=== PATIENT | male | born 1990 | race Caucasian/White ===

== ENCOUNTER → 2018-03-05 08:43 | Outpatient (CLI) | payer BC, SELFPAY ==
[2018-03-05 10:55] LABS: Anion Gap 11 (5-15); BUN 20 mg/dL (7-18); Chloride 104 mmol/L (98-107); Cholesterol 111 mg/dL (200); Creatinine, Serum 1.05 mg/dL (0.70-1.30); EST Glomerular Filtration Rate 89 mL/min (>60); Est Glom Filt Rate - Afr Amer 108 mL/min (>60); Glucose 86 mg/dL (74-106); High Density Lipoprotein 62 mg/dL; Potassium 4.1 mmol/L (3.5-5.1); Sodium Level 142 mmol/L (136-145); Thyroid Stim Hormone (TSH) 4.64 uIU/mL (0.358-3.74); Triglycerides 61 mg/dL; Very Low Density Lipoprotein 12 mg/dL (5-40)
== END ==
PROVIDERS: Family Provider Family Medicine; PCP Family Medicine; Visit Provider Family Medicine
DX: Z00.00 Encounter for general adult medical examination without abnormal findings (principal)
CPT/HCPCS: 36415; 80048; 80061; 84443

== ENCOUNTER → 2018-06-18 12:58 | Outpatient (CLI) | payer BC, SELFPAY ==
--- NOTE | 2018-06-18 13:00 | SP.MBSS_ITS ---
PRIMARY / SECONDARY DIAGNOSIS: dysphagia (R13.10) REFERRING PHYSICIAN: Dr. Billy Barton MD CURRENT DIET: regular textures, thin liquids DENTITION: WFL MENTAL STATUS: WNL RESPIRATORY STATUS: O2 via room air PREVIOUS MODIFIED BARIUM SWALLOW STUDY: REASON FOR REFERRAL: Patient is a 27 year old male referred for a modified barium swallow (MBS) study to objectively assess the Patients oropharyngeal swallow function under fluoroscopy secondary to reported persistent reflux issues with intermittent globus sensation that has somewhat improved over the last two weeks through pharmacological management. The Patient denies any coughing or throat clearing during ingestion, though reports difficulty with PO medication ingestion, particularly with larger pills or when attempting to ingest more than one at a time. Reports globus sensation occurs more consistently and more prominently with faster ingestion rates. MEDICAL HISTORY: Gastroesophageal reflux disease STUDY FINDINGS: Patient participated in a Modified Barium Swallow (MBS) study on 06/18/2018. Dr. Varela was the radiologist present for this evaluation. This study was recorded in the lateral view and images were sent to PACs for storage. The following consistencies were presented to this patient for analysis of oropharyngeal swallow function: thin liquids and a regular textured, Destini Doone cookie. Results of the MBS are as follows: PENETRATION / ASPIRATION SCALE (HILL): 1 = does not enter airway 2 = enters airway/above vocal folds/ejected 3 = enters airway/above vocal folds/not ejected 4 = enters airway/contacts vocal folds/ejected 5 = enters airway/contacts vocal folds/not ejected 6 = enters airway/below vocal folds/ejected 7 = enters airway/below vocal folds/not ejected despite effort 8 = enters airway/below vocal folds/no effort PENETRATION / ASPIRATION SCALE (SCORE): Thin liquids via cup (single sip): 1 Thin liquids via cup (single sip): 1 Thin liquids via cup (single sip): 1 Thin liquids via cup (sequential swallows): 1 Regular textures via spoon: 1 Regular textures via spoon: 1 Thin liquids via straw (single sip): 1 Thin liquids via straw (sequential swallows): 1 Thin liquids via straw (12mm tablet): 1 IMPRESSION: DIAGNOSIS: oropharyngeal swallow function within functional limits ORAL PHASE CHARACTERIZED BY: LABIAL SEAL: no labial escape TONGUE CONTROL DURING BOLUS MANIPULATION: posterior escape of less than half of bolus BOLUS PREPARATION / MASTICATION: timely and efficient chewing and mashing BOLUS TRANSPORT / LINGUAL MOTION: brisk tongue motion ORAL RESIDUE: complete oral clearance PHARYNGEAL PHASE CHARACTERIZED BY: INITIATION OF PHARYNGEAL SWALLOW: bolus head at posterior angle of ramus at first hyoid excursion SOFT PALATE ELEVATION: no bolus between soft palate and pharyngeal wall LARYNGEAL ELEVATION: complete superior movement of thyroid cartilage with complete approximation of arytenoids cartilage to epiglottic petiole ANTERIOR HYOID EXCURSION: complete anterior movement EPIGLOTTIC MOVEMENT: complete epiglottic inversion LARYNGEAL VESTIBULE CLOSURE AT HEIGHT OF SWALLOW: complete laryngeal vestibule closure with no air/contrast in laryngeal vestibule PHARYNGEAL STRIPPING WAVE: pharyngeal stripping wave present / complete PHARYNGOESOPHAGEAL SEGMENT OPENING: complete distension and complete duration with no obstruction of flow TONGUE BASE RETRACTION: no contrast between tongue base and posterior pharyngeal wall PHARYNGEAL RESIDUE: complete pharyngeal clearance ESOPHAGEAL PHASE CHARACTERIZED BY: ESOPHAGEAL BOLUS CLEARANCE IN THE UPRIGHT POSITION: complete clearance; esophageal coating DIET TEXTURE RECOMMENDATIONS: Will recommend a regular textured, thin liquid diet. COMPENSATORY STRATEGIES RECOMMENDED: Seated upright at 90 degrees during PO intake, remain upright for 30-60 minutes post meal (GERD precaution), medications with purees. INTERPRETATION OF RESULTS: The Patient presents with mastication and deglutition abilities found to be within normal limits. No clinically significance findings noted this date, with very brief and scant premature posterior spillage to the valleculae during thin liquid ingestion occurring on 1 occasion, consisting of very limited amounts of barium. Noted irregular swallow pattern directly attributed to phagophobia (fear of swallowing) during ingestion of medications, with the Patient reporting fear of choking with medications, which is not unreasonable given the reported symptomology, and is not significant enough to where any measurement obtained during the study was radically altered or safety was significantly compromised. This will likely be appropriately managed by adjusting the presentation of medications (with purees), with the Patient reporting that he already intermittently adjusts PO medication ingestion in this manner. No penetration or aspiration appreciated throughout all consistencies trialed. RECOMMENDATIONS: Would consider further referral for esophageal workup due to the symptoms described above by the Patient if symptoms persist. Patient able to comprehend and express recommended intake precautions detailed above with sufficient detail to suggest high likelihood of compliance. Provided brief overview of signs and symptoms of aspiration, with recommendations for the Patient to further discuss symptoms with PCP. No further skilled speech- language services warranted at this time targeting dysphagia. ADDITIONAL COMMENTS/RECOMMENDATIONS: Results and recommendations were discussed with the Patient immediately following MBS completion, with the Patient verbalizing understanding and agreement with all recommendations and education provided. IMAGE COUNT: 1384 G-CODES: SWALLOWING G8996 Current Status: SWALLOWING G8997 Goal Status: SWALLOWING G8998 Discharge Status: Wilmer Donahue M.A., CCC-BAR TACKER [facility] Speech-Language Pathology Department [email or web address]
--- NOTE | 2018-06-18 13:12 | RAD_ITS ---
STUDY: SWALLOWING STUDY REASON FOR EXAM: Male, 27 years old. Dysphagia. TECHNIQUE: The examination was performed with Speech Pathology in attendance. Under fluoroscopic observation, the patient ingested thin barium, thick barium, barium pudding, and barium coated cracker. FLUOROSCOPY TIME: 1:32 minutes/seconds . 1384 fluoroscopic images were obtained. RADIOLOGIST INVOLVEMENT: Radiologist was present and providing direct supervision. COMPARISON: None. FINDINGS: The following was observed during swallowing of the various mixtures of barium: Thin Barium: There was no evidence of aspiration or laryngeal penetration. Barium Pudding: There was no evidence of aspiration or laryngeal penetration. Barium Coated Cracker: There was no evidence of aspiration or laryngeal penetration. RAD/Swallowing Function w/Video IMPRESSION: Normal tailored barium swallow study. No evidence of increased risk for aspiration. The patient ingested a 12 mm tablet of barium without any difficulty. The swallow study findings were discussed with the patient by the speech pathologist at the conclusion of the examination. Please see speech pathology report for more information and recommendations. Electronically Signed: Miguel Varela MD at 14:49 EST Tel [phone], Service support ,
== END ==
PROVIDERS: Family Provider Family Medicine; PCP Family Medicine; Referring Provider Family Medicine; Visit Provider Family Medicine
DX: R13.10 Dysphagia, unspecified (principal)
CPT/HCPCS: 74230; 92611

== ENCOUNTER → 2018-09-29 15:47 | Outpatient (CLI) | payer BC, SELFPAY ==
[2016-10-07 17:59] VITALS: BMI 26.4
[2018-09-29 17:53] LABS: Thyroid Stim Hormone (TSH) 4.76 uIU/mL (0.358-3.74)
== END ==
PROVIDERS: Family Provider Family Medicine; PCP Family Medicine; Referring Provider Family Medicine; Visit Provider Family Medicine
DX: E03.9 Hypothyroidism, unspecified (principal)
CPT/HCPCS: 36415; 84443

== ENCOUNTER → 2018-12-10 16:17 | Outpatient (CLI) | payer BC, SELFPAY ==
[2016-10-07 17:59] VITALS: BMI 26.4
[2018-12-10 17:29] LABS: Absolute Lymphocyte Count 2.11 X10^3/ul (0.83-4.51); Absolute Neutrophil Count 2.5 X10^3/uL (2.0-7.7); Basophil# 0.02 X10^3/uL; Basophil% 0.4 % (0-1); Eosinophil# 0.28 X10^3/uL; Eosinophils% 4.9 % (0-5); Hematocrit 47.2 % (40-54); Lymphocyte # 2.11 X10^3/ul (4.0); Lymphocyte % 37.2 % (19-41); Mean Corp Hgb Conc 33.9 g/gl (32-36); Mean Corpuscular Hgb 31.3 pg (27.0-32.0); Mean Corpuscular Volume 92.2 fL (80-94); Mean Platelet Vol. 10.1 fl (6.2-12.0); Monocyte# 0.79 X10^3/uL; Monocyte% 13.9 % (0-10); Neutrophil # 2.46 X10^3/uL (2.7-7.7); Neutrophil % 43.4 % (47-70); Platelet Count 263 K/mm3 (150-450); RBC Distribution Width CV 11.9 % (11.6-14.6); RBC Distribution Width SD 39.3 fl (35.1-43.9); Red Blood Count 5.12 M/mm3 (4.6-6.2); White Blood Count 5.7 K/mm3 (4.4-11.0)
[2018-12-10 17:35] LABS: POSITIVE COUNT NO; POSITIVE DIFFERENTIAL NO; POSITIVE MORPHOLOGY NO
[2018-12-10 17:57] LABS: Anion Gap 5 (5-15); BUN 21 mg/dL (7-18); BUN/Creat Ratio 21.3 RATIO (10-20); Calcium,Total 8.8 mg/dL (8.5-10.1); Chloride 104 mmol/L (98-107); Creatinine, Serum 0.98 mg/dL (0.70-1.30); EST Glomerular Filtration Rate 96 mL/min (>60); Est Glom Filt Rate - Afr Amer 116 mL/min (>60); Glucose 81 mg/dL (74-106); Potassium 3.9 mmol/L (3.5-5.1); Sodium Level 140 mmol/L (136-145); Thyroid Stim Hormone (TSH) 2.63 uIU/mL (0.358-3.74)
== END ==
PROVIDERS: Family Provider Family Medicine; PCP Family Medicine; Referring Provider Family Medicine; Visit Provider Family Medicine
DX: E03.9 Hypothyroidism, unspecified (principal); R53.83 Other fatigue
CPT/HCPCS: 36415; 80048; 84403; 84436; 84443; 84481; 85025

== ENCOUNTER → 2019-05-17 08:26 | Outpatient (CLI) | payer BC, SELFPAY ==
[2019-05-17 10:50] LABS: Anion Gap 7 (5-15); BUN 19 mg/dL (7-18); BUN/Creat Ratio 17.4 RATIO (10-20); Calcium,Total 9.1 mg/dL (8.5-10.1); Chloride 102 mmol/L (98-107); Cholesterol 107 mg/dL (200); Creatinine, Serum 1.09 mg/dL (0.70-1.30); EST Glomerular Filtration Rate 85 mL/min (>60); Est Glom Filt Rate - Afr Amer 103 mL/min (>60); Free T3 3.6 pg/mL (2.18-3.98); Glucose 85 mg/dL (74-106); High Density Lipoprotein 62 mg/dL; Sodium Level 138 mmol/L (136-145); T4 Total, Thyroxin 9.5 ug/dL (4.5-12.1); Thyroid Stim Hormone (TSH) 4.97 uIU/mL (0.358-3.74); Triglycerides 50 mg/dL; Very Low Density Lipoprotein 10 mg/dL (5-40)
== END ==
PROVIDERS: Family Provider Family Medicine; PCP Family Medicine; Referring Provider Family Medicine; Visit Provider Family Medicine
DX: Z00.00 Encounter for general adult medical examination without abnormal findings (principal); E03.9 Hypothyroidism, unspecified
CPT/HCPCS: 36415; 80048; 80061; 84403; 84436; 84443; 84481

== ENCOUNTER → 2023-04-03 | Outpatient (CLI) | payer OTHER, SELFPAY ==
[2023-04-03 18:39] LABS: Anion Gap 5 (5-15); BUN 23 mg/dL (7-18); BUN/Creat Ratio 19.8 RATIO (10-20); Calcium,Total 8.9 mg/dL (8.5-10.1); Chloride 104 mmol/L (98-107); Cholesterol 110 mg/dL (200); Creatinine, Serum 1.16 mg/dL (0.70-1.30); EST Glomerular Filtration Rate 77 mL/min (>60); Est Glom Filt Rate - Afr Amer 93 mL/min (>60); Free T3 3.7 pg/mL (2.18-3.98); Glucose 86 mg/dL (74-106); High Density Lipoprotein 58 mg/dL; Potassium 3.6 mmol/L (3.5-5.1); Sodium Level 137 mmol/L (136-145); T4 Free Direct 1.03 ng/dL (0.76-1.46); Triglycerides 76 mg/dL; Very Low Density Lipoprotein 15 mg/dL (5-40)
== END | disposition home or self-care (01) ==
LOC: MFPLAB 16:58
PROVIDERS: PCP Family Medicine; Visit Provider Family Medicine
DX: Z00.00 Encounter for general adult medical examination without abnormal findings (principal); E03.9 Hypothyroidism, unspecified
CPT/HCPCS: 36415; 80048; 80061; 84439; 84443; 84481

== ENCOUNTER → 2023-07-17 | Outpatient (CLI) | payer OTHER, SELFPAY ==
--- OUTSIDE RECORDS SUMMARY | 2023-07-17 12:40 | XMS RPT_ITS | CCD ---
Author Name Unknown Address [address] [place] [address] Organization [facility] Care Team Providers Care Switchboard Clerk Name Role Phone Unavailable Primary Care Provider Unavailabl e Medications Completed/Discontinued Medications Medication Drug Class(es) Dates Sig (Normalized) Sig (Original) fluticasone propionate 0.05 mg/actuat metered dose nasal spray (1 source) Corticosteroid Start: 04-03-2019 take 2 spray(s) by mouth once daily fluticasone (FLONASE) 50 mcg/actuation nasal spray Indications: Nasal congestion Use 2 Sprays in each nostril once daily. Rinse mouth after use. 1 Bottle 0 04/03/2019 Active Problems Problem Classification Problem Date Documented Da te Episodic/Chronic Other upper respiratory disease (1 source) Nasal congestion; Translations: [Nasal congestion] Episodic Encounters Encounter Date Encounter Type Care Provider Facility Start: 04-25-2019 End: 04-25-2019 Jaspreet Vera APRN.CNP Work Phone: [facility] Plan of Treatment Date Care Activity Detail Author Start: 03-13-2021 Influenza vaccination INFLUENZA (Sea son Ended) [facility] Start: 2008 Urine microalbumin profile DTAP,TDAP ,TD (1 - Tdap) [facility] Start: 10-26-2007 HEPATITIS C SCREENING HEPATITIS C SC REENING [facility] Start: 10-26-2007 HIV SCREENING [facility] SCREENING [facility] Start: 2001 Adult depression scr ning assessment DEPRESSION SCREENING [facility] Payers Date Payer Category Payer Unknown ANTHEM BLUE CROS S AND BLUE SHIELD ANTHEM MEDIBLUE ACCESS [id number] 2019-Present PPO [id number] Social History Date Type Detail Facility Start: 04-03-2019 Tobacco smoking status NHIS Never sm oker [facility] Start: 04-03-2019 Tobacco use and exposure Never used [facility] Work Phone: Start: 1990 Sex Assigned At Not on file [facility] Evaluation note Note Date & Type Note Facility documented in this encounter [facility] Additional Source Comments Source Comments (unrecognize d section and content) In the event this informatio n is protected by the Federal Confidentiality of Alcohol and Drug Abuse Patient Records regulations: The Federal rules restrict any use of the information to criminally investigate or prosecute any alcohol or drug abuse patient.[facility] Reason for Visit (unrecogniz ed section and content) FOR RECORDS PERTAINING TO PATIENTS WHO ARE OR HAVE BEEN ENROLLED IN A CHEMICAL DEPENDENCY/SUBSTANCEABUSE PROGRAM, SOME INFORMATION MAY BE OMITTED. This clinical summary was aggregated from multiple sources. Caution should be exercised in using it in the provision of clinical care. This summary normalizes information from multiple sources, and as a consequence, information in this document may materially change the coding, format and clinical context of patient data. In addition, data may be omitted in some cases. CLINICAL DECISIONS SHOULD BE BASED ON THE PRIMARY CLINICAL RECORDS. [employer] [facility]. provides no warranty or guarantee of the accuracy or completeness of information in this document.
[2023-07-17 15:55] LABS: Free T3 3.1 pg/mL (2.18-3.98); T4 Free Direct 0.93 ng/dL (0.76-1.46); Thyroid Stim Hormone (TSH) 2.92 uIU/mL (0.358-3.74)
== END | disposition home or self-care (01) ==
LOC: MFPLAB 11:47
PROVIDERS: PCP Family Medicine; Visit Provider Family Medicine
DX: E03.9 Hypothyroidism, unspecified (principal)
CPT/HCPCS: 36415; 84439; 84443; 84481

== ENCOUNTER → 2023-12-21 | Outpatient (CLI) | payer OTHER, SELFPAY ==
[2023-12-21 18:04] LABS: Free T3 2.9 pg/mL (2.18-3.98); T4 Free Direct 0.95 ng/dL (0.76-1.46); Thyroid Stim Hormone (TSH) 3.51 uIU/mL (0.358-3.74)
== END | disposition home or self-care (01) ==
LOC: MFPLAB 14:52
PROVIDERS: PCP Family Medicine; Visit Provider Family Medicine
DX: E03.9 Hypothyroidism, unspecified (principal)
CPT/HCPCS: 36415; 84439; 84443; 84481